=== PATIENT | male | born 1990 | race Caucasian/White ===

== ENCOUNTER 2018-07-14 11:43 | Emergency (ER) | payer MEDICAID, OTHER, SELFPAY ==
[~2018-07-14] VITALS: Ht 185.4 cm; Wt 106.0 kg
[2018-07-14] MEDS ORDERED: KETOROLAC 30 MG/1 ML IM ONE (12:00)
[2018-07-14] MEDS ORDERED: KETOROLAC 30 MG/1 ML ONE (12:13)
[2018-07-14] MEDS ORDERED: SODIUM CHLORIDE FLUSH 10ML SYR IVF ONE (13:30)
--- NOTE | 2018-07-14 13:32 | NUR ---
IV STARTED DUE TO MASTOIDITIS ON CT SCAN. PT TO GET IV ANTIBIOTICS.
[2018-07-14 13:53] LABS: BASOPHILS # (AUTO) 0.03 x10^3/uL (0-0.1); BASOPHILS % (AUTO) 0 % (0-1); EOSINOPHILS # (AUTO) 0.17 x10^3/uL (0-0.4); EOSINOPHILS % (AUTO) 2 % (1-7); LYMPHOCYTES # (AUTO) 1.86 x10^3/uL (1-3.4); LYMPHOCYTES % (AUTO) 23 % (22-44); MD NO; MEAN CORPUSCULAR HEMOGLOBIN 29.3 pg (27.5-34.5); MEAN CORPUSCULAR HGB CONC 33.6 g/dL (33.2-36.2); MEAN CORPUSCULAR VOLUME 87.1 fL (81-97); MEAN PLATELET VOLUME 8.6 fL (7.4-10.4); MONOCYTES # (AUTO) 0.64 x10^3/uL (0.2-0.8); MONOCYTES % (AUTO) 8 % (2-9); NEUTROPHILS # (AUTO) 5.31 x10^3/uL (1.8-6.8); NEUTROPHILS % (AUTO) 66 % (42-75); PLATELET COUNT 243 x10^3/uL (130-400); RED BLOOD COUNT 4.92 x10^6/uL (4.38-5.82); RED CELL DISTRIBUTION WIDTH 13.2 % (9.4-14.8)
[2018-07-14] MEDS ORDERED: CLINDAMYCIN PMX 900MG/50ML 50 ML ONE (13:56)
[2018-07-14] MEDS ORDERED: CLINDAMYCIN PMX 900MG/50ML 50 ML IV ONE (14:00)
[2018-07-14 14:01] LABS: ALBUMIN 3.9 g/dL (3.4-5.0); ANION GAP 6 mmol/L (5-15); CALCIUM 8.8 mg/dL (8.5-10.1); CHLORIDE 105 mmol/L (98-107)
[2018-07-14 14:02] LABS: CREATININE 0.91 mg/dL (0.7-1.3)
[2018-07-14 15:05] VITALS: BP 134/67
== END 2018-07-14 15:07 | disposition home or self-care (01) ==
LOC: ED 15:04
DX: H60.12 Cellulitis of left external ear (principal); H60.502 Unspecified acute noninfective otitis externa, left ear; H70.002 Acute mastoiditis without complications, left ear
CPT/HCPCS: 36415; 70480; 80048; 82040; 85025; 96365; 96372; 99284; J1885

== ENCOUNTER 2019-02-10 10:27 | Emergency (ER) | payer SELFPAY ==
[~2019-02-10] VITALS: Ht 185.4 cm; Wt 101.4 kg
[2019-02-10 10:53] VITALS: BP 135/58
--- NOTE | 2019-02-10 10:57 | NUR ---
PT AMBULATORY WITH STEADY GAIT USING HIS OWN CRUTCHES FROM TRIAGE TO ROOM.
--- NOTE | 2019-02-10 10:58 | NUR ---
PT HERE FOR PAIN IN ANKLE- STATES HE GOT OUT OF BED YESTERDAY AND STEPPED ON A TOY AND FELT PAIN THEN. PAIN HAS GOTTEN WORSE SINCE THEN. RESTING ON GURNEY. NADN. ROA AT BEDSIDE ASSESSING PT NOW.
--- NOTE | 2019-02-10 11:03 | NUR ---
PT PROVIDED WITH ICE.
[2019-02-10] MEDS ORDERED: IBUPROFEN 200 MG TABLET ONE (11:05)
--- NOTE | 2019-02-10 11:06 | NUR ---
PT MEDICATED PER EMAR.
[2019-02-10] MEDS ORDERED: IBUPROFEN 600 MG TABLET PO ONE (12:00)
== END 2019-02-10 12:02 | disposition home or self-care (01) ==
LOC: ED 12:00
DX: S82.61XA Displaced fracture of lateral malleolus of right fibula, initial encounter for closed fracture (principal); W22.8XXA Striking against or struck by other objects, initial encounter; Y93.89 Activity, other specified; Y92.89 Other specified places as the place of occurrence of the external cause; Y99.8 Other external cause status
CPT/HCPCS: 29515; 99283

== ENCOUNTER 2019-02-23 13:08 | Day surgery (SDC) | payer MEDICAID ==
[~2019-02-23] VITALS: Ht 185.4 cm; Wt 103.4 kg
[~2019-02-23 13:08] MED LIST: BUPIVACAINE/EPI 0.5% 1:200K ONE
[2019-02-23 13:44] VITALS: BP 134/90
[2019-02-23] MEDS ORDERED: LACTATED RINGERS 1,000 ML IV SCH (13:49)
[2019-02-23] MEDS ORDERED: HYDR-3237 PO (13:50)
[2019-02-23] MEDS ORDERED: ACETAMINOPHEN 500 MG TABLET PO ONE (14:00)
[2019-02-23] MEDS ORDERED: GABAPENTIN 300 MG CAPSULE PO ONE (14:00)
[2019-02-23] MEDS ORDERED: ROCURONIUM 10MG/ML,5ML ONE (14:19)
[2019-02-23] MEDS ORDERED: GLYCOPYRROLATE 0.2MG/1ML, 5ML ONE (14:19)
[2019-02-23] MEDS ORDERED: DEXAMETHASONE 4 MG/ML, 1ML ONE (14:19)
[2019-02-23] MEDS ORDERED: PROPOFOL 10 MG/ML, 20ML ONE (14:19)
[2019-02-23] MEDS ORDERED: ONDANSETRON 2MG/ML, 2ML ONE (14:19)
[2019-02-23] MEDS ORDERED: SUCCINYLCHOLINE 20 MG/ML, 10ML ONE (14:19)
[2019-02-23] MEDS ORDERED: FENTANYL PF 250 MCG/5ML ONE (14:19)
[2019-02-23] MEDS ORDERED: CEFAZOLIN 1,000 MG ONE (14:19)
[2019-02-23] MEDS ORDERED: MIDAZOLAM 1 MG/ML, 2ML ONE (14:19)
[2019-02-23] MEDS ORDERED: NEOSTIGMINE 1 MG/ML, 10ML ONE (14:19)
[2019-02-23] MEDS ORDERED: hydrALAzine 20 MG/ML, 1ML IV PRN (15:00)
[2019-02-23] MEDS ORDERED: LABETALOL 5MG/ML, 20ML IV PRN (15:00)
[2019-02-23] MEDS ORDERED: EPHEDRINE 50 MG/ML, 1ML IVPush PRN (15:00)
[2019-02-23] MEDS ORDERED: OXYcodone 5 MG/5 ML ORAL.SOL UDC PO PRN ×2 (15:00→17:00)
[2019-02-23] MEDS ORDERED: MEPERIDINE/PF 25MG/ML,1ML IVPush PRN (15:00)
[2019-02-23] MEDS ORDERED: PROMETHAZINE 25 MG/ML, 1ML IV PRN (15:00)
[2019-02-23] MEDS ORDERED: ONDANSETRON 2MG/ML, 2ML IV PRN (15:00)
[2019-02-23] MEDS ORDERED: KETOROLAC 30 MG/1 ML ONE (15:21)
[2019-02-23] MEDS: FENTANYL PF 100 MCG/2ML IV PRN ×3 (16:35→17:05)
[2019-02-23] MEDS ORDERED: FENTANYL PF 100 MCG/2ML ONE (16:44)
[2019-02-23] MEDS ORDERED: HYDROmorphone 1 MG/ML, 1ML VIAL ONE (16:45)
[2019-02-23] MEDS ORDERED: OXYcodone 5 MG/5 ML ORAL.SOL UDC ONE (16:45)
[2019-02-23] MEDS: HYDROmorphone 2 MG/ML, 1ML IVPush PRN ×2 (16:58→17:06)
== END 2019-02-23 17:55 | disposition home or self-care (01) ==
LOC: OUT 13:08
PROVIDERS: ATTEND Orthopaedic Surgery
DX: S82.61XA Displaced fracture of lateral malleolus of right fibula, initial encounter for closed fracture (principal); F17.210 Nicotine dependence, cigarettes, uncomplicated; Z79.1 Long term (current) use of non-steroidal anti-inflammatories (NSAID); Z79.891 Long term (current) use of opiate analgesic; X50.1XXA Overexertion from prolonged static or awkward postures, initial encounter; Y93.89 Activity, other specified; Y92.092 Bedroom in other non-institutional residence as the place of occurrence of the external cause; Y99.8 Other external cause status
CPT/HCPCS: 01480; 27792; 73610; C1713; J0330; J0690; J1100; J1170; J1885; J2250; J2405; J2704; J2710; J3010; J7120; 76000

== ENCOUNTER 2019-04-11 11:26 | Emergency (ER) | payer MEDICAID ==
[~2019-04-11] VITALS: Ht 185.4 cm; Wt 103.0 kg
[~2019-04-11 11:26] MED LIST changes: -BUPIVACAINE/EPI 0.5% 1:200K ONE; +HYDR-3237 PO
[2019-04-11 11:28] VITALS: BP 123/71
--- NOTE | 2019-04-11 11:39 | NUR ---
PT AMBULATORY TO ROOM 7 W/ C/O L EAR PAIN/BLEEDING/DISCHARGE X 1 WEEK. PT STATES HX SAME. PT RESTING ON GURNEY. NADN. DENIES FEVERS/CHILLS.
== END 2019-04-11 11:59 | disposition home or self-care (01) ==
LOC: ED 11:45
DX: H66.002 Acute suppurative otitis media without spontaneous rupture of ear drum, left ear (principal)
CPT/HCPCS: 99283

== ENCOUNTER 2019-07-15 08:09 | Emergency (ER) | payer MEDICAID ==
[~2019-07-15] VITALS: Ht 182.9 cm; Wt 99.2 kg
[2019-07-15] MEDS ORDERED: MORPHINE SULFATE 4 MG/ML, 1ML ONE (08:59)
[2019-07-15] MEDS ORDERED: ONDANSETRON 2MG/ML, 2ML ONE (08:59)
[2019-07-15] MEDS ORDERED: MORPHINE SULFATE 4 MG/ML, 1ML IVPush PRN (09:00)
[2019-07-15] MEDS ORDERED: PLEASE ENTER ALLERGIES MC SCH (09:00)
[2019-07-15] MEDS ORDERED: SODIUM CHLORIDE FLUSH 10ML SYR IVF ONE (09:00)
[2019-07-15] MEDS ORDERED: ONDANSETRON 2MG/ML, 2ML IVPush ONE (09:00)
--- NOTE | 2019-07-15 09:03 | NUR ---
Received report from previous RN. Informed of patients complaint of left ear pain. Blood draw and intravenous access complete. This RN to bedside to adminstered analgesic and antiemetic medications. Patient tolerated well. pc network technician to bedside. Patient out of room now for imaging. Awaiting imaging read
[2019-07-15 09:10] LABS: BASOPHILS # (AUTO) 0.03 x10^3/uL (0-0.1); BASOPHILS % (AUTO) 0 % (0-1); EOSINOPHILS # (AUTO) 0.17 x10^3/uL (0-0.4); EOSINOPHILS % (AUTO) 2 % (1-7); LYMPHOCYTES % (AUTO) 20 % (22-44); MD NO; MEAN CORPUSCULAR HEMOGLOBIN 28.6 pg (27.5-34.5); MEAN CORPUSCULAR HGB CONC 33.4 g/dL (33.2-36.2); MEAN CORPUSCULAR VOLUME 85.5 fL (81-97); MEAN PLATELET VOLUME 8.7 fL (7.4-10.4); MONOCYTES # (AUTO) 0.76 x10^3/uL (0.2-0.8); MONOCYTES % (AUTO) 8 % (2-9); NEUTROPHILS # (AUTO) 6.43 x10^3/uL (1.8-6.8); NEUTROPHILS % (AUTO) 70 % (42-75); PLATELET COUNT 240 x10^3/uL (130-400); RED BLOOD COUNT 5.31 x10^6/uL (4.38-5.82); RED CELL DISTRIBUTION WIDTH 14.1 % (9.4-14.8)
[2019-07-15 09:22] LABS: ALBUMIN 3.9 g/dL (3.4-5.0); ANION GAP 6 mmol/L (5-15); CHLORIDE 110 mmol/L (98-107); CREATININE 0.93 mg/dL (0.7-1.3)
[2019-07-15 09:25] VITALS: BP 124/75
--- NOTE | 2019-07-15 09:51 | NUR ---
Patient back from computed tomography scan. Updated vital signs (see vital signs flowsheet) awaiting reevaluation by provider
== END 2019-07-15 10:17 | disposition home or self-care (01) ==
LOC: MERGE 08:26 → ED 08:26
DX: H60.312 Diffuse otitis externa, left ear (principal); R09.81 Nasal congestion; R51 Headache
CPT/HCPCS: 36415; 70480; 80048; 82040; 85025; 96374; 96375; 99284; J2270; J2405

== ENCOUNTER 2019-10-27 10:22 | Emergency (ER) | payer MEDICAID ==
[~2019-10-27] VITALS: Ht 182.9 cm; Wt 94.8 kg
[2019-10-27 10:32] VITALS: BP 124/64
== END 2019-10-27 12:24 | disposition home or self-care (01) ==
LOC: ED 10:47
DX: H92.02 Otalgia, left ear (principal); M54.2 Cervicalgia; F17.210 Nicotine dependence, cigarettes, uncomplicated
CPT/HCPCS: 99283

== ENCOUNTER 2020-09-09 09:31 | Emergency (ER) | payer MEDICAID ==
[~2020-09-09] VITALS: Ht 182.9 cm; Wt 88.4 kg
--- NOTE | 2020-09-09 10:25 | NUR ---
PT STATES WOKE UP THIS AM AROUND 0800 AND LOST VISION IN THE RIGHT EYES X3. PT STATES THIS IS THE FIRST TIME THAT THIS HAS HAPPENED AND DOES NOT HAVE MEDICAL HISTORY.
[2020-09-09 10:49] VITALS: BP 119/79
--- NOTE | 2020-09-09 11:17 | NUR ---
Patient given discharge instructions and they have confirmed that they understand the instructions. Patient ambulatory with steady gait. No questons at time of discharge.
== END 2020-09-09 11:18 | disposition home or self-care (01) ==
LOC: ED 10:58
DX: H53.121 Transient visual loss, right eye (principal); F17.210 Nicotine dependence, cigarettes, uncomplicated
CPT/HCPCS: 99406